=== PATIENT | female | born 1965 | race African-American/Black ===

== ENCOUNTER 2017-04-04 08:29 | Observation (INO) | payer BC ==
--- NOTE | 2017-04-04 09:13 | RAD ---
CHEST 1 VIEW: HISTORY: Chest pain. COMPARISON: None. FINDINGS: Lungs are clear. No pneumothorax or effusion. Cardiac silhouette and mediastinal contours are withi n normal limits. IMPRESSION: No acute intrathoracic abnormality. POS: [facility]
[2017-04-04 09:14] LABS: #Basophils 0.1 thou/uL (0.0-0.2); #Eosinphils 0.2 thou/uL (0.0-0.7); #Lymphocytes 2.3 thou/uL (1.20-3.40); #Monocytes 0.3 thou/uL (0.11-0.59); #Neutrophils 4.4 thou/uL (1.40-6.50); %Basophils 1.3 % (0.0-1.0); %Lymphocytes 31.3 % (21.0-51.0); %Monocytes 4.2 % (0.0-10.0); %Neutrophils 60.2 % (42.0-75.0); Hemoglobin 15.3 g/dL (12.0-16.0); Mean Corpuscular Hemoglobin 32.4 pg (27.0-31.0); Mean Corpuscular Volume 98.3 fl (81.0-99.0); Mean Platelet Volume 8.3 fL (7.4-10.4); Platelet Count 299 thou/uL (130-400); RBC Distribution Width 11.6 % (11.5-14.5); Red Blood Cell (RBC) Count 4.73 mill/uL (4.20-5.40); White Blood Cell (WBC) Count 7.3 thou/uL (4.8-10.8)
[2017-04-04] MEDS ORDERED: Aspirin 325 MG TAB ONE (09:19)
[2017-04-04 09:41] LABS: CKMB 1.1 ng/mL (0-6.6); Troponin I 0.014 ng/mL (< 0.028)
[2017-04-04 09:46] LABS: ALT (SGPT) 18 U/L (8-55); AST (SGOT) 22 U/L (5-34); Albumin 4.6 g/dL (3.5-5.0); Anion Gap 13 mmol/L (10-20); BUN (Urea Nitrogen) 10 mg/dL (9.8-20.1); Bilirubin, Total 0.3 mg/dL (0.2-1.2); CK (CPK) 73 U/L (29-168); Calc. Creatinine Clearance 0 mL/min (70-130); Calcium 9.8 mg/dL (7.8-10.44); Carbon Dioxide 26 mmol/L (22-29); Chloride 101 mmol/L (98-107); Estimated GFR-MDRD Greater than 90; Globulin 3.8 g/dL (2.4-3.5); Glucose 208 mg/dL (70-105); Lipase 152 U/L (8-78); Potassium 4.7 mmol/L (3.5-5.1); Protein, Total 8.4 g/dL (6.0-8.3); Sodium 135 mmol/L (136-145)
[2017-04-04 10:19] LABS: Alkaline Phosphatase 129 U/L (40-150)
[2017-04-04 11:54] VITALS: BMI 27.1
[2017-04-04 12:43] LABS: Troponin I Less than 0.010 ng/mL (< 0.028)
[2017-04-04 15:38] LABS: Troponin I Less than 0.010 ng/mL (< 0.028)
[2017-04-04] MEDS ORDERED: Dextrose 50% Abboject 50 ML SYRINGE IVP PRN (18:29)
[2017-04-04] MEDS ORDERED: Insulin Regular 300 UNITS/3 ML VIAL SC PRN (18:29)
[2017-04-04] MEDS ORDERED: Dextrose 5% in Water 1,000 ML IV PRN (18:29)
[2017-04-04] MEDS ORDERED: Insulin Detemir 100 UNITS/ML 10 UNITS in Pre-Filled Syringe 1 EACH SC SCH (21:00)
[2017-04-05 06:09] LABS: Hemoglobin A1c 8.9 % (4.0-6.0)
[2017-04-05 06:20] LABS: Cardiac Risk 4.5 (Less than 4.5)
--- NOTE | 2017-04-05 06:32 | HP ---
DATE OF ADMISSION: 04/04/2017 REASON FOR ADMISSION: Chest pain. HISTORY OF PRESENT ILLNESS: Ms. Cruz is a 51-year-old -[place] female with past medical history of diabetes, hypertension, hyperlipidemia, who came with chest pain in the retrosternal area, started 3 days ago. The patient says pain is a pressure-like, nonradiating, associated with shortness of breath and dizziness, but no diaphoresis. No nausea or vomiting. The patient says the chest pain is on and off, stays for a few minutes and goes away and comes back, but chest pain is not resolving. The patient decided to come to the hospital because of this chest pain. In the ER, the patient was evaluated, found to have normal cardiac enzymes and EKG. In view of risk factors, the patient is being admitted to rule out myocardial infarction. PAST MEDICAL HISTORY: 1. Diabetes mellitus. 2. Hypertension. 3. Hyperlipidemia. 4. Tobacco abuse. PAST SURGICAL HISTORY: Nothing significant. CURRENT MEDICATIONS: The patient is on lisinopril/hydrochlorothiazide 20/25 daily, glyburide with metformin 5/500, 2 b.i.d., also takes Lantus insulin 10 units daily. ALLERGIES: No known drug allergies. FAMILY HISTORY: Nothing of interest. SOCIAL HISTORY: The patient lives with family. No history of alcohol. Smokes 1 pack a day. REVIEW OF SYSTEMS: Cardiovascular: Has chest pain and shortness of breath. Respiratory: No fever or cough. Gastrointestinal: No nausea or vomiting. No abdominal pain. Genitourinary: No dysuria or hematuria. Central Nervous System: No headache, no dizziness. PHYSICAL EXAMINATION: GENERAL: The patient is alert, awake, and oriented x3. VITAL SIGNS: Temperature 98, pulse 89, respirations 20, blood pressure 170/104 initially, came down to 130/77. HEENT: Head is normocephalic, atraumatic. Pupils are equal and reactive. Nasopharynx is pink, moist. NECK: Supple. No JVD. LUNGS: Bilateral air entry present, no rales, no rhonchi. CARDIAC: S1, S2 regular. ABDOMEN: Soft, no distention, no tenderness. Normal bowel sounds present. RECTAL: Deferred. CENTRAL NERVOUS SYSTEM: No focal deficits. LABORATORY AND X-RAY FINDINGS: CBC shows WBC 7.3, hemoglobin 15, hematocrit 46 , platelets 299. Metabolic panel: Sodium 135, potassium 4.7, chloride 101, CO2 of 26, urea nitrogen 10, creatinine 0.7, glucose 208. CK-MB 1.1, troponin I 0.014. EKG shows normal sinus with PVCs, no acute ST-T wave changes seen. Chest x-ray, no acute intrathoracic abnormality. ASSESSMENT: 1. Chest pain, rule out myocardial infarction. 2. Insulin-dependent diabetes mellitus, uncontrolled. 3. Hypertension. 4. Hyperlipidemia. 5. Tobacco abuse. PLAN: 1. Vital signs q.4 hours. 2. Activity: As tolerated. 3. Allergies: No known drug allergies. 4. Hep-lock. 5. Diet: ADA and cardiac. 6. Troponin I q.8 hours x2. 7. Cardiolite stress test in the morning. 8. Continue home medication. 9. Accu-Chek a.c. and at bedtime. 10. Sliding scale mild with regular insulin. 11. Hold metformin. MTDD
[2017-04-05] MEDS ORDERED: Lisinopril/Hydrochlorothiazide 20/25 mg Tablet PO SCH (09:00)
[2017-04-05] MEDS ORDERED: Aspirin 325 MG TAB PO SCH (09:00)
--- NOTE | 2017-04-05 15:36 | NM ---
RADIONUCLIDE STRESS REST MYOCARDIAL PERFUSION SCAN WITH CT ATTENUATION CORRECTION AND SPECT IMAGING: HISTORY: Chest pain. FINDINGS: Adenosine protocol was used. There is heterogeneous uptake of radiotracer throughout the left ventri cular myocardium on the stress and rest images. No focal perfusion defect or reversibility are appar ent. QGS analysis of gated SPECT images shows no focal wall motion abnormalities. Left ventricular ejecti on fraction is calculated at 47%. IMPRESSION: 1. Normal myocardial perfusion scan showing no reliable evidence of ischemia. 2. Borderline ejection fraction of 47% without focal wall motion abnormality. POS: [facility]
[2017-04-05 16:27] VITALS: BP 112/84; TEMP 98.4
[2017-04-05] MEDS ORDERED: ADENOSINE 60 MG/20 ML VIAL ONE (16:29)
--- NOTE | 2017-04-08 12:00 | EKG ---
Test Reason : CHEST PAIN Blood Pressure : / mmHG Vent. Rate : 088 BPM Atrial Rate : 088 BPM P-R Int : 136 ms QRS Dur : 070 ms QT Int : 392 ms P-R-T Axes : 044 018 060 degrees QTc Int : 474 ms Sinus rhythm with frequent Premature ventricular complexes Possible Left atrial enlargement Borderline ECG Confirmed by KEON PELAYO, RADU ([id number]), editor at large KHANG BRUCE ([id number]) on 04/08/2017 11:59:53 AM Referred By: Confirmed By:RADU HERBERT MD
== END 2017-04-05 17:00 | disposition home or self-care (01) ==
LOC: ERS 08:29 → 2SW 09:57
PROVIDERS: ADMIT Internal Medicine; ATTEND Internal Medicine
DX: R07.89 Other chest pain (principal); E11.9 Type 2 diabetes mellitus without complications; I10 Essential (primary) hypertension; E78.5 Hyperlipidemia, unspecified; F17.210 Nicotine dependence, cigarettes, uncomplicated; Z79.4 Long term (current) use of insulin; Z79.899 Other long term (current) drug therapy
CPT/HCPCS: 36415; 36416; 71045; 78452; 80053; 80061; 82550; 82553; 83036; 83690; 84484; 85025; 93005; 93017; 94760; 99406; A9500; G0378; J0153; J1815

== ENCOUNTER 2018-08-11 10:38 | Emergency (ER) | payer BC ==
--- NOTE | 2018-08-11 11:30 | RAD ---
EXAM: Chest PA and lateral: HISTORY: Cough COMPARISON: 04/04/2017 FINDINGS: Heart size:Within normal limits. Lungs:Clear of acute process. No confluent pneumonia, overt edema, pleural effusion, or other acute process. IMPRESSION: No significant acute intrathoracic disease.
== END 2018-08-11 12:04 | disposition home or self-care (01) ==
LOC: ERS 10:38
DX: J06.9 Acute upper respiratory infection, unspecified (principal); I10 Essential (primary) hypertension; E11.9 Type 2 diabetes mellitus without complications; F17.210 Nicotine dependence, cigarettes, uncomplicated; Z79.899 Other long term (current) drug therapy; Z79.82 Long term (current) use of aspirin
CPT/HCPCS: 71046

== ENCOUNTER 2019-07-08 11:26 | Inpatient (IN) | payer BC ==
[2019-07-08] MEDS ORDERED: Aspirin Chewable 81 MG TAB ONE (11:59)
[2019-07-08 12:07] LABS: #Basophils 0.1 thou/uL (0.0-0.2); #Eosinphils 0.3 thou/uL (0.0-0.7); #Lymphocytes 2.2 thou/uL (1.20-3.40); #Monocytes 0.3 thou/uL (0.11-0.59); #Neutrophils 3.6 thou/uL (1.40-6.50); %Basophils 1.1 % (0.0-1.0); %Eosinophils 4.4 % (0.0-10.0); %Lymphocytes 33.6 % (21.0-51.0); %Monocytes 5.2 % (0.0-10.0); %Neutrophils 55.7 % (42.0-75.0); Hemoglobin 13.4 g/dL (12.0-16.0); Mean Corpuscular HGB CONC 32.9 g/dL (32.0-36.0); Mean Corpuscular Hemoglobin 31.5 pg (27.0-31.0); Mean Corpuscular Volume 95.7 fL (78.0-98.0); Mean Platelet Volume 8.2 fL (7.4-10.4); Platelet Count 284 thou/uL (130-400); RBC Distribution Width 11.1 % (11.5-14.5); Red Blood Cell (RBC) Count 4.24 mill/uL (4.20-5.40); White Blood Cell (WBC) Count 6.6 thou/uL (4.8-10.8)
[2019-07-08 12:34] LABS: Albumin 4.7 g/dL (3.5-5.0)
[2019-07-08 12:35] LABS: Calcium 9.9 mg/dL (7.8-10.44); Chloride 98 mmol/L (98-107); Potassium 4.5 mmol/L (3.5-5.1); Sodium 136 mmol/L (136-145)
[2019-07-08 12:36] LABS: Glucose 228 mg/dL (70-105)
[2019-07-08 12:37] LABS: Globulin 2.8 g/dL (2.4-3.5); Protein, Total 7.5 g/dL (6.0-8.3)
[2019-07-08 12:38] LABS: Anion Gap 17 mmol/L (10-20); Bilirubin, Total 0.4 mg/dL (0.2-1.2); Carbon Dioxide 26 mmol/L (22-29)
[2019-07-08 12:39] LABS: Alkaline Phosphatase 107 U/L (40-110); Calc. Creatinine Clearance 0 mL/min (70-130); Estimated GFR-MDRD 67
[2019-07-08 12:40] LABS: BUN (Urea Nitrogen) 21 mg/dL (9.8-20.1)
[2019-07-08 12:41] LABS: AST (SGOT) 14 U/L (5-34)
[2019-07-08 12:42] LABS: ALT (SGPT) 16 U/L (8-55)
--- NOTE | 2019-07-08 12:47 | RAD ---
PORTABLE CHEST: Date: 07/08/2019 PROVIDED CLINICAL HISTORY: Shortness of breath. FINDINGS: Comparison with 04/04/2017. Cardiac and mediastinal silhouette is within normal limits. Lungs appear clear. No pleural fluid or p neumothorax apparent. IMPRESSION: No evidence for acute cardiopulmonary process. POS: [facility]
--- NOTE | 2019-07-08 15:05 | PDOC.FPRHP ---
- History of Present Illness Chief Complaint: Shortness of breath History of Present Illness: This is a 53yo F presenting today for SOB. Her symptoms started on Monday, went away Monday and when she woke up today was SOB again. She states her SOB is improved currently. She states that she went to the bathroom while in the ER and wasn't SOB. She also endorses chest pain on the left side of chest going to the shoulder on Monday. She took Aleve which improved her pain on the L. She states the pain was dull/achy. Pain was 6/10. She states nothing made the pain worse. The Aleve made the pain better and she was able to sleep right after that. She endorses sweats due to heat flashes. Patient states that she had a normal pharmacologic stress test about 2 years ago. ED Course: given ASA, normal CXR - Allergies/Adverse Reactions Allergies Allergy/AdvReac Type Severity Reaction Status Date / Time No Known Allergies Allergy Unverified 04/04/17 12:12 - Home Medications Medication Instructions Recorded Confirmed Type Glyburide/Metformin HCl 2 tablet PO BID-WM 04/04/17 04/04/17 History [glyBURIDE/metFORMIN] Insulin Glargine,Hum.Rec.Anlog 10 unit SQ QPM 04/04/17 04/04/17 History [Lantus] Lisinopril/Hydrochlorothiazide 1 tablet PO DAILY 04/04/17 04/04/17 History [Lisinopril-Hctz 20-25 mg Tab] - History PMHx: DMII, HTN, HLD PSHx: uterine ablation, trigger finger FHx: Mother (70) and Father (56) of CAD; brother with CAD Social: Hx of tobacco use - started age 15 -23, [age], [age]; hx of alcohol, cocaine and marijuana use 27yrs ago - Review of Systems General: reports: night sweats. denies: fever/chills, weight/appetite/sleep changes, fatigue Eyes: denies: vision changes ENT: denies: nasal congestion, rhinorrhea Respiratory: reports: shortness of breath. denies: cough, congestion, exercise intolerance Cardiovascular: reports: chest pain. denies: palpitation, edema, orthopnea Gastrointestinal: reports: nausea, vomiting. denies: diarrhea, constipation, abdominal pain, GI bleeding Genitourinary: denies: dysuria Skin: reports: rashes, itching Musculoskeletal: denies: pain, tenderness, stiffness, swelling, arthritis/ arthralgias Neurological: denies: weakness - Vital signs Pulse: 89, Resp: 16, Temp: 98.3 (Oral), Pain: 0, O2 sat: 100 on (Room Air), Time : 07/08/2019 11:32. Weight: 66kg - Physical Exam Constitutional: NAD, awake, alert and oriented, well developed HEENT: normocephalic and atraumatic, PERRLA, EOMI, no scleral icterus, grossly normal vision, grossly normal hearing, MMM Neck: supple, FROM, trachea midline, no LAD, no JVD Chest: no-tender to palpation, no lesions Heart: RRR, normal S1/S2, no murmurs/rubs/gallops, pulses present, no edema Lungs: CTAB, no respiratory distress, good air movement, no rales/rhonchi, no wheezing, no retractions Abdomen: soft, non-tender, bowel sounds present, no masses/distention Musculoskeletal: normal structure, normal tone, ROM grossly normal Neurological: no focal deficit, CN II-XII intact, normal sensation Skin: no rash/lesions, good turgor, capillary refill <2 seconds Heme/Lymphatic: no unusual bruising or bleeding Psychiatric: normal mood and affect, good judgment and insight, intact recent and remote memory FMR H&P: Results - Labs Result Diagrams: 07/08/19 11:59 07/08/19 11:59 Lab results: WBC 6.6 thou/uL (4.8-10.8) 07/08/19 11:59 Hgb 13.4 g/dL (12.0-16.0) 07/08/19 11:59 Hct 40.6 % (36.0-47.0) 07/08/19 11:59 MCV 95.7 fL (78.0-98.0) 07/08/19 11:59 Plt Count 284 thou/uL (130-400) 07/08/19 11:59 Neutrophils % 55.7 % (42.0-75.0) 07/08/19 11:59 Sodium 136 mmol/L (136-145) 07/08/19 11:59 Potassium 4.5 mmol/L (3.5-5.1) 07/08/19 11:59 Chloride 98 mmol/L (98-107) 07/08/19 11:59 Carbon Dioxide 26 mmol/L (22-29) 07/08/19 11:59 BUN 21 mg/dL (9.8-20.1) H 07/08/19 11:59 Creatinine 1.04 mg/dL (0.6-1.1) 07/08/19 11:59 Glucose 228 mg/dL (70-105) H 07/08/19 11:59 Calcium 9.9 mg/dL (7.8-10.44) 07/08/19 11:59 Total Bilirubin 0.4 mg/dL (0.2-1.2) 07/08/19 11:59 AST 14 U/L (5-34) 07/08/19 11:59 ALT 16 U/L (8-55) 07/08/19 11:59 Alkaline Phosphatase 107 U/L (40-110) 07/08/19 11:59 B-Natriuretic Peptide Less than 10.0 pg/mL (0-100) 07/08/19 11:59 Serum Total Protein 7.5 g/dL (6.0-8.3) 07/08/19 11:59 Albumin 4.7 g/dL (3.5-5.0) 07/08/19 11:59 - Radiology Interpretation Chest x-ray Status: report reviewed by me (normal) FMR H&P: A/P - Problem List (1) Shortness of breath Current Visit: Yes Status: Acute Code(s): R06.02 - SHORTNESS OF BREATH (2) DM (diabetes mellitus) Current Visit: Yes Status: Acute Code(s): E11.9 - TYPE 2 DIABETES MELLITUS WITHOUT COMPLICATIONS (3) HTN (hypertension) Current Visit: Yes Status: Acute Code(s): I10 - ESSENTIAL (PRIMARY) HYPERTENSION (4) HLD (hyperlipidemia) Current Visit: Yes Status: Acute Code(s): E78.5 - HYPERLIPIDEMIA, UNSPECIFIED (5) Chest pain Current Visit: No Status: Acute Code(s): R07.9 - CHEST PAIN, UNSPECIFIED - Plan Atypical Chest Pain -Heart score of 3 -Risk factors: family history of cardiac , diabetes, hypertension, and hyperlipidemia. -Normal cardiolite stress in 2018. -Plan for stress in the AM. Pending results, possible d/c tomorrow. -NPO at midnight. No beta blockers after midnight. DM II -Continue home medications -SSI and hypoglycemia protocol HTN -continue home medications HLD -Continue home medications. Dispo: admit to tele, obs DVT ppx: SCDs GI ppx: not indicated Code status: FULL Case discussed with Dr. Larkin FMR H&P: Upper Level - Plan Date/Time: 07/08/19 1502 I, Rosa Beckham MD, have evaluated this patient and agree with findings/plan as outlined by wedding planning internship resident. Pertinent changes/additions are listed here. This is a 53yo F presenting to the ER primarily due to SOB. She states she first felt SOB on Monday and this went away on Monday. She started to feel SOB again this morning which is what led her to come to the ER> She also endorses chest pain on Monday night that was left sided and radiates to her shoulder, was dull in character and rated a 6/10. She states the chest pain has resolved and not returned. She states nothing made her SOB worse or better. Alieve made her chest pain go away. She reports she is able to sleep flat and on her stomach at night without any issue. She was able to walk to the bathroom in the ER without getting SOB. She does report a significant family hx of cardiac disease. She has a significant smoking hx but quit 2 years ago. Patient states she had a previously normal stress test about 2 years ago. See interns note for full HPI and histories. PE: General: NAD, well developed HEENT: PEERL, EOMI, NC/AT, trachea midline, mild JVD Cardio: RRR, no murmurs, rubs or gallops Resp: CTAB, no wheezes, rales or rhonchi Abd: soft, non tender, non distended MSK: FROM, no tenderness in L extremity Neuro: non focal Psych: normal mood/affect, axox3 A&P: Atypical Chest Pain Symptoms of SOB and chest pain. HEART score of 3 - low risk. Risk factors include: DMII, HTN, HLD, fam hx - Trop neg x 1, trend - Stress test in AM, NPO at midnight - Admit to tele, obs DMII - ACHS, SS, continue home regimen HTN - aware, continue home meds HLD - aware, continue home meds - FLP in AM to risk stratify Dispo: admit to tele, obs DVT ppx: none, low risk GI ppx: not indicated Code status: FULL Case discussed with Dr. Larkin Addendum - Attending - Attending Attestation Date/Time: 07/08/191934 I personally evaluated the patient and discussed the management with Dr. Flores I agree with the History, Examination, Assessment and Plan documented above with any addition or exceptions noted below- 53 yo female with h/o DM, HTN, HLD who presents with SOB, intermittent. Patient reports episode of chest pain and SOB on Monday that resolved spontaneously. [place] well on Monday and this morning had another episode of SOB. Denies any fever/chills, diaphoresis, N/V/D , abdominal pain, diarrhea. Afebrile VSS. BP 142/86 P87 RR18 Exam repeated by me and agree with resident's findings. Labs: WBC=6.6, Ou=676, K=4.5, BUN/Cr= 21/1.04, Zyvh=058, trop I <0.010. EKG- NSR no ST changes. A/P: 1) Chest pain - Place in obs. Serial cardiac enzymes. Plan for stress test in the morning. 2) DM - continue home meds and monitor accuchecks. will check HgBA1c.
[2019-07-08] MEDS ORDERED: Dextrose 50% Abboject 50 ML SYRINGE SLOW IVP PRN (15:42)
[2019-07-08] MEDS ORDERED: Acetaminophen 325 MG TAB PO PRN (15:42)
[2019-07-08] MEDS ORDERED: Dextrose 5% in Water 1,000 ML IV PRN (15:42)
[2019-07-08] MEDS ORDERED: HumaLOG 300 UNITS/3 ML VIAL SC PRN (15:42)
[2019-07-08 18:32] LABS: Troponin I Less than 0.010 ng/mL (< 0.028)
[2019-07-08] MEDS ORDERED: Nitroglycerin 0.4 MG TAB (25 Tab Bottle) SL PRN (20:46)
[2019-07-08 21:10] VITALS: BMI 26.7
[2019-07-08 21:37] LABS: Troponin I Less than 0.010 ng/mL (< 0.028)
[2019-07-08 22:33] LABS: Amphetamine Not Detected (NotDetected); Barbiturates Screen Not Detected (NotDetected); Benzodiazepine Screen Not Detected (NotDetected); Cocaine Metabolite Screen Not Detected (NotDetected); Medtox Control Line Valid? VALID (VALID); Medtox Reader # READER 4; Methadone Not Detected (NotDetected); Methamphetamine Not Detected (NotDetected); Opiate Screen Not Detected (NotDetected); Oxycodone Screen Not Detected (NotDetected); Phencyclidine (PCP) Not Detected (NotDetected); THC/Cannabinoid Screen Not Detected (NotDetected); Tricyclic Screen Not Detected (NotDetected)
[2019-07-09 05:35] LABS: Hemoglobin A1c 8.7 % (4.0-6.0)
[2019-07-09 05:50] LABS: Cardiac Risk 3.8 (Less than 4.5)
--- NOTE | 2019-07-09 06:06 | PDOC.FM ---
- Objective MAR Reviewed: Yes Vital Signs & Weight: Vital Signs (12 hours) Temp Pulse Resp BP Pulse Ox 07/09/19 04:00 97.4 F L 81 16 119/69 100 07/09/19 00:00 98.3 F 84 16 118/67 97 07/08/19 20:34 98.3 F 90 20 120/70 98 Weight Weight 66.27 kg Result Diagrams: 07/08/19 11:59 07/08/19 11:59 Additional Labs: A1c 8.7 Phys Exam - Physical Examination Constitutional: NAD HEENT: moist MMs, sclera anicteric Neck: supple, full ROM Respiratory: no wheezing, no rales, no rhonchi, clear to auscultation bilateral Cardiovascular: RRR, no significant murmur, no rub Gastrointestinal: soft, non-tender, no distention Musculoskeletal: no edema, pulses present Neurological: non-focal, normal sensation, moves all 4 limbs Psychiatric: normal affect, A&O x 3 Skin: no rash, normal turgor Dx/Plan (1) Shortness of breath Code(s): R06.02 - SHORTNESS OF BREATH Status: Acute (2) DM (diabetes mellitus) Code(s): E11.9 - TYPE 2 DIABETES MELLITUS WITHOUT COMPLICATIONS Status: Acute (3) HTN (hypertension) Code(s): I10 - ESSENTIAL (PRIMARY) HYPERTENSION Status: Acute (4) HLD (hyperlipidemia) Code(s): E78.5 - HYPERLIPIDEMIA, UNSPECIFIED Status: Acute (5) Chest pain Code(s): R07.9 - CHEST PAIN, UNSPECIFIED Status: Acute - Plan Plan: Atypical Chest Pain -Heart score of 3 -Risk factors: family history of cardiac , diabetes, hypertension, and hyperlipidemia. -Normal cardiolite stress in 2018. -Plan for stress test this morning. D/c plan pending results. DM II -Continue home medications -SSI and hypoglycemia protocol -A1c 8.7. Will need outpatient follow up for tighter diabetes management. HTN -continue home medications HLD -Continue home medications. Dispo: admit to tele, obs DVT ppx: SCDs GI ppx: not indicated Code status: FULL Case discussed with Dr. Larkin
[2019-07-09] MEDS: HumaLOG 300 UNITS/3 ML VIAL SC PRN ×2 (06:24→16:17)
--- NOTE | 2019-07-09 06:45 | PDOC.FM ---
- Subjective Subjective: NAEO. Per tele, patient had 10 sec of PAT. Patient standing up at the bedside. No complaints or concerns. Denies any SOB, chest pain, NVD, abd pain, palpitations overnight. - Objective MAR Reviewed: Yes Vital Signs & Weight: Vital Signs (12 hours) Temp Pulse Resp BP Pulse Ox 07/09/19 04:00 97.4 F L 81 16 119/69 100 07/09/19 00:00 98.3 F 84 16 118/67 97 07/08/19 20:34 98.3 F 90 20 120/70 98 Weight Weight 66.27 kg Result Diagrams: 07/08/19 11:59 07/08/19 11:59 Phys Exam - Physical Examination Constitutional: NAD HEENT: moist MMs, sclera anicteric Neck: supple, full ROM Respiratory: clear to auscultation bilateral Cardiovascular: RRR, no significant murmur, no rub Gastrointestinal: soft, non-tender, no distention, positive bowel sounds Musculoskeletal: no edema Neurological: non-focal, moves all 4 limbs Psychiatric: normal affect, A&O x 3 Skin: no rash, normal turgor, cap refill <2 seconds Dx/Plan (1) DM (diabetes mellitus) Code(s): E11.9 - TYPE 2 DIABETES MELLITUS WITHOUT COMPLICATIONS Status: Acute (2) HLD (hyperlipidemia) Code(s): E78.5 - HYPERLIPIDEMIA, UNSPECIFIED Status: Acute (3) HTN (hypertension) Code(s): I10 - ESSENTIAL (PRIMARY) HYPERTENSION Status: Acute (4) Shortness of breath Code(s): R06.02 - SHORTNESS OF BREATH Status: Acute (5) Chest pain Code(s): R07.9 - CHEST PAIN, UNSPECIFIED Status: Acute - Plan Plan: Atypical Chest Pain Symptoms of SOB and chest pain. HEART score of 3 - low risk. Risk factors include: DMII, HTN, HLD, fam hx. Hx of normal stress test in 2018. Etiology likely MSK as it was relieved with alieve. - Trop neg x 2 - Stress test this AM - Risk stratified with A1c: 8.7, FLP: Total 105, TG 147, HDL 28, LDL 48. ASCVD risk 9.5% - recommend high intensity statin. Will increase atorvastatin to 40mg daily. Patient agreeable. DMII - ACHS, SS, continue home regimen HTN - aware, continue home meds HLD - aware, continue home meds - see above - will increase to high intensity statin. Dispo: DC if stress test normal DVT ppx: none, low risk GI ppx: not indicated Code status: FULL Case discussed with Dr. Larkin Addendum - Attending - Attending Attestation Date/Time: 07/09/19 2125 I personally evaluated the patient and discussed the management with Dr. Beckham I agree with the History, Examination, Assessment and Plan documented above with any addition or exceptions noted below- Patient denies any complaints. No further SOB or chest pain. Afebrile VSS. A/P: 1) Chest pain- troponins negative ; Stress showed no reversible ischemia but does have depressed ejection fraction =33%. Will obtain echo and plan for cardiology consult. 2) DM- Continue current meds. 3) HTN - stable; continue current meds.
[2019-07-09] MEDS ORDERED: GLYBURIDE PO SCH (08:00)
[2019-07-09] MEDS ORDERED: METFORMIN HCL PO SCH (08:00)
[2019-07-09] MEDS: Aspirin 81 mg Enteric Coated Tablet PO SCH (08:22)
[2019-07-09] MEDS: Lisinopril/Hydrochlorothiazide 20/25 mg Tablet PO SCH (08:23)
[2019-07-09] MEDS ORDERED: ADENOSINE 60 MG/20 ML VIAL ONE (09:16)
--- NOTE | 2019-07-09 13:05 | NM ---
Radionucleotide stress and rest myocardial perfusion scan with CT attenuation correction and SPECT im aging Left ventricular wall motion evaluation and ejection fraction HISTORY: Chest pain. FINDINGS: Adenosine protocol. There is heterogeneous uptake of radiotracer throughout the left ventri cular myocardium. No focal perfusion defect or reversibility evident. QGS analysis of gated SPECT images shows decrease in motion of the septum. Left ventricular ejection fraction calculated at 33%. IMPRESSION : No scintigraphic evidence of ischemia. Markedly depressed left ventricular ejection fraction. Relative hypokinesis of the septum.
[2019-07-09] MEDS: metFORMIN 500 MG TAB PO SCH ×2 (13:49→16:18)
[2019-07-09] MEDS: glyBURIDE 5 MG TAB PO SCH ×2 (13:50→16:18)
[2019-07-09] MEDS ORDERED: hydrOXYzine 25 MG TAB PO PRN (14:40)
[2019-07-09] MEDS ORDERED: Atorvastatin Calcium 40 MG TAB PO SCH (21:00)
[2019-07-10] MEDS: HumaLOG 300 UNITS/3 ML VIAL SC PRN ×2 (06:16→12:52)
--- NOTE | 2019-07-10 07:02 | PDOC.FM ---
- Subjective Subjective: NAEO. Patient resting comfortably in bed, getting echo. Patient less anxious today after talking with her family. She denies any SOB, chest pain, palpitations, NVD, LE edema. - Objective MAR Reviewed: Yes Vital Signs & Weight: Vital Signs (12 hours) Temp Pulse Resp BP Pulse Ox 07/10/19 03:02 97.8 F 82 18 111/55 L 96 07/09/19 19:15 98.4 F 92 18 138/71 98 Weight Weight 66.224 kg I&O: 07/08/19 07/09/19 07/10/19 06:59 06:59 06:59 Intake Total 1140 Balance 1140 Result Diagrams: 07/08/19 11:59 07/08/19 11:59 Phys Exam - Physical Examination Constitutional: NAD HEENT: moist MMs, sclera anicteric Neck: supple, full ROM Respiratory: clear to auscultation bilateral Cardiovascular: RRR Gastrointestinal: soft Neurological: non-focal, moves all 4 limbs Psychiatric: normal affect, A&O x 3 Skin: no rash, normal turgor, cap refill <2 seconds Dx/Plan (1) DM (diabetes mellitus) Code(s): E11.9 - TYPE 2 DIABETES MELLITUS WITHOUT COMPLICATIONS Status: Acute (2) HLD (hyperlipidemia) Code(s): E78.5 - HYPERLIPIDEMIA, UNSPECIFIED Status: Acute (3) HTN (hypertension) Code(s): I10 - ESSENTIAL (PRIMARY) HYPERTENSION Status: Acute (4) Shortness of breath Code(s): R06.02 - SHORTNESS OF BREATH Status: Acute (5) Chest pain Code(s): R07.9 - CHEST PAIN, UNSPECIFIED Status: Acute - Plan Plan: Atypical Chest Pain Symptoms of SOB and chest pain. HEART score of 3 - low risk. Risk factors include: DMII, HTN, HLD, fam hx. Hx of normal stress test in 2018. Etiology possibly due to low EF. - Trop neg x 2 - Stress test showed no ischemia, but did reveal low EF of 33% estimated. Echo pending. - Cardiology consulted, appreciate recommendations. - Risk stratified with A1c: 8.7, FLP: Total 105, TG 147, HDL 28, LDL 48. ASCVD risk 9.5% - recommend high intensity statin. Will increase atorvastatin to 40mg daily. Patient agreeable. Possible new dx CHF, no exacerbation - Stress test revealed EF 33%, systolic dysfxn. Pending TTE. Cardiology consulted. DMII - ACHS, SS, continue home regimen. A1c 8.7. Could consider adding SGLT2. Will need to f/u outpatient for better control. HTN - aware, continue home meds HLD - aware, continue home meds - see above - will increase to high intensity statin. Dispo: pending echo results DVT ppx: none, low risk GI ppx: not indicated Code status: FULL Case discussed with Dr. Larkin Addendum - Attending - Attending Attestation Date/Time: 07/10/19 9816 I personally evaluated the patient and discussed the management with Dr. Beckham I agree with the History, Examination, Assessment and Plan documented above with any addition or exceptions noted below - Patient without complaints. No further episodes of chest pain or SOB. Afebrile VSS. A/P: 1) Chest pain- resolved. 2) Abnormal stress- echo shows normal EF. Will d/c home today 3) DM - continue meds.
[2019-07-10] MEDS: glyBURIDE 5 MG TAB PO SCH (09:21)
[2019-07-10] MEDS: Aspirin 81 mg Enteric Coated Tablet PO SCH (09:22)
[2019-07-10] MEDS: metFORMIN 500 MG TAB PO SCH (09:22)
[2019-07-10] MEDS: Lisinopril/Hydrochlorothiazide 20/25 mg Tablet PO SCH (09:23)
[2019-07-10 13:06] VITALS: BP 157/72; TEMP 98
--- NOTE | 2019-07-10 17:10 | CON ---
DATE OF CONSULTATION: HISTORY OF PRESENT ILLNESS: The patient is a 53-year-old woman who presents for evaluation of chest discomfort and dyspnea. The patient was seen with chest pain in March of 2017. At that time, she underwent a Cardiolite stress test, where she was found to have an ejection fraction 47% with no evidence of ischemia. The patient was placed on medical therapy. She was in her usual state of health when she developed left-sided chest discomfort. It radiated down to her left arm.This discomfort lasted for approximately 20 minutes. The patient states she took Aleve and the pain resolved. The next morning, she felt increasing dyspnea. She reports dyspnea with minimal exertion. She denied having any PND or orthopnea. The patient came for further evaluation. The patient at this time has had no further chest discomfort and is not short of breath. The patient has multiple cardiac risk factors including diabetes mellitus, hypertension, dyslipidemia, and a family history of coronary artery disease. PAST MEDICAL HISTORY: 1. Diabetes mellitus. 2. Hypertension. 3. Dyslipidemia. PAST SURGICAL HISTORY: Uterine ablation. SOCIAL HISTORY: Former smoker. ALLERGIES: NO KNOWN DRUG ALLERGIES. FAMILY HISTORY: Strong family history of coronary artery disease. MEDICATIONS: 1. Lisinopril HCTZ 20/25 tablet daily. 2. Aspirin 81 daily. 3. Lipitor 40 at bedtime. REVIEW OF SYSTEMS: Ten-point system otherwise unremarkable. PHYSICAL EXAMINATION: GENERAL: Well-developed woman, in no acute distress. VITAL SIGNS: Blood pressure 111/55. NECK: No jugular venous distention. LUNGS: Clear to auscultation. HEART: Regular rate and rhythm. Normal S1 and S2. No murmurs. ABDOMEN: Nondistended. EXTREMITIES: Show no edema. VASCULAR: Radial pulses 2+. LABORATORY DATA: White blood cell count 6.6, hemoglobin 13.4, hematocrit 40.6, platelet 284. Sodium is 136, potassium 4.5, chloride 98, bicarbonate 26, BUN 21 , creatinine 1.0, glucose 228. Troponin less than 0.01. BNP was less than 10. EKG normal sinus rhythm with premature ventricular contraction, otherwise unremarkable EKG. Cardiolite stress test revealed a moderately decreased left ventricular ejection fraction 33% with no evidence of ischemia. Echocardiogram, normal left ventricular ejection fraction 50% to 55% with diastolic dysfunction. IMPRESSION AND PLAN: 1. Chest pain, possibly due to ischemic heart disease. 2. Hypertension. 3. Diabetes mellitus. 4. History of tobacco abuse. 5. Strong family history of coronary artery disease. This patient presents with chest pain. Her Cardiolite stress test revealed no evidence of significant ischemia. The patient is on appropriate cardiac medication. The patient was found to have a low ejection fraction on the stress test; however, an echocardiogram revealed normal left ventricular systolic function with no evidence of cardiomyopathy. From a cardiac standpoint, I presented the option of undergoing further evaluation including cardiac catheterization. The patient prefers to be placed on medical therapy. We will start the patient on a low dose of Cardizem. The patient should have sublingual nitroglycerin. If she continues to be symptomatic, then she will need to undergo further evaluation. We will follow this patient with you through her hospitalization. Job ID: [id number] MTDD
--- NOTE | 2019-07-11 08:36 | PQF ---
ABRAHAM QUEZADA ANNA MD [id number] [id number] CLINICAL DOCUMENTATION CLARIFICATION FORM: POST DISCHARGE Addendum to original discharge summary date: ____ Late entry note date: __ DATE: 07/11/2019 ATTN: Navya Brown Please exercise your independent, professional judgment in responding to the clarification form. Clinical indicators are provided on the bottom of this form for your review In your clinical opinion based on clinical findings below, can you please identify the etiology of Chest pain if due to: Please check appropriate box(s): [ ] CHF Type: [ ] Systolic [ ] Diastolic [ ] Mixed Acuity: [ ] Acute [ ] Chronic [ ] Acute on Chronic [ x ] Musculoskeletal pain [ ] Ischemic heart disease [ ] Other diagnosis [ ] Unable to determine For continuity of documentation, please document condition throughout progress notes and discharge summary. Thank You. CLINICAL INDICATORS - SIGNS / SYMPTOMS /LABS Laboratory 07/07 BNP 10.0, Troponin less than 0.010 Vital signs 07/07 -BP 142/86, Pulse 89, Resp 16, Temp 98.3 H&P p1 07/07 Dr Flores She woke up today was SOB again. She also endorses chest pain on the left side of chest going to shoulder H&P p1 07/07 Dr Flores Pain was 08/13 Hospitalist p2 07/08 Atypical chest pain etiology likely MSK as it was relieved with alieve Hospitalist p2 07/08 Stress showed no reversible ischemia but does have depressed ejection fraction = 33% Hospitalist p2 07/09 Atypical chest pain etiology possible due to low EF Hospitalist p2 07/09 possible new dx of CHF, no exacerbation. Stress test revealed EF 33%, systolic dysfunction Consult p2 07/09 Chest pain possibly due to ischemic heart disease EKG 07/07 EKG findings: occasional PVCs RISK FACTORS H&P p1 07/07 DM II H&P p1 07/07 HTN H&P p1 07/07 HLD H&P p1 07/07 Former Smoker Consult p2 07/09 - Family hx of Coronary artery disease TREATMENTS: MAY 08 Aspirin Chewable 81 mg oral MAY 07 Lipitor 40mg oral MAY 08 Prinizide 1 tab oral MAY 08 Cardizem 120 mg oral Cardiology consult 07/09 Cristian Lewis Chest X-ray 07/07 Stress test Nuclear medicine 07/08 TTE 07/09 EKG Collected 07/07 (This form is maintained as a part of the permanent medical record) 2014 [employer]. All Rights Reserved [email or web address]
--- NOTE | 2019-07-11 14:19 | DIS ---
DATE OF ADMISSION: 07/08/2019 DATE OF DISCHARGE: 07/10/2019 RESIDENT: Rosa Beckham MD ADMITTING ATTENDING: Navya Larkin MD. DISCHARGE ATTENDING: Navya Larkin MD. CONSULTS: Cardiology, Dr. Mata. PROCEDURES: 1. On 07/09/2019, nuclear stress test showing no reversible ischemia, ejection fraction 33%, and relative hypokinesis of the septum. 2. Echocardiogram on 07/10/2019 showing ejection fraction 50% to 55%, normal sized left atrium, diastolic dysfunction. DISCHARGE MEDICATIONS: 1. Lipitor 40 mg oral at bedtime. 2. Diltiazem 120 mg oral daily. 3. Atarax 25 mg oral every 4 hours as needed. 4. Nitrostat 0.4 mg sublingual every 5 minutes as needed. 5. Lisinopril/hydrochlorothiazide 1 tablet oral daily. 6. Glyburide/metformin 2 tablets oral twice daily with meals. 7. Lantus 15 to 25 units subcutaneous every evening. 8. Aspirin 81 mg oral daily. Discontinued medications: 1. Lipitor 20 mg at bedtime. PRIMARY DIAGNOSIS: 1. Atypical chest pain. SECONDARY DIAGNOSES: 1. Hypertension, type 2 diabetes. 2. Tobacco abuse. HISTORY OF PRESENT ILLNESS/HOSPITAL COURSE: This is a 53-year-old female, who presented to the ER for shortness of breath and chest pain that has been occurring intermittently over the last 3 days. The patient reported that the chest pain was left-sided and radiated to the shoulder, but was improved with Aleve. She said the pain was dull and achy and a 6/10 pain. The patient states that she has never had this type of feeling before. She reported normal stress test that was done about 2 years ago. The patient was given aspirin and had a normal chest x- ray in the ER. The patient's troponins were negative. Vital signs stable. The patient was admitted for further workup of her chest pain. She has a strong family history of cardiac disease. She had a HEART score of 3. She was admitted and monitored on telemetry. She had a Cardiolite stress test on day 2, which showed an ejection fraction of 33%, but no reversible ischemia. Cardiology consulted. An echo then showed normal EF. Cardiology recommended starting on low dose Cardizem and stated that the stress EF was likely incorrect. The patient was also offered the option of undergoing cardiac catheterization in case her pain was due to ischemic disease, but the patient declined at this time as she was no longer having symptoms. If she does continue to be symptomatic, then she would consider undergoing further evaluation with a cardiac catheterization. The patient will also need to follow up with her PCP to monitor her diabetes. Her A1c was found to be 8.7 during her stay. The patient could increase her insulin or consider adding an SGLT2. DISPOSITION: Stable. DISCHARGE INSTRUCTIONS: 1. Location: Home. 2. Activity: Ad maura. 3. Diet: Heart healthy and consistent carbohydrate. 4. Followup: Follow up with PCP within 7 days. Of note, the patient was seeing Dr. Patel but he moved. She was given a [employer] [facility] card to follow up with us within one week. Job ID: [id number] MTDD
== END 2019-07-10 14:59 | disposition home or self-care (01) | DRG 313 ==
LOC: ERS 11:26 → 2SE 18:00 → OBSVTOIN 18:00 → 2NO 07-09 17:09
PROVIDERS: ADMIT Family Medicine; ATTEND Family Medicine
PROC: 3E0234Z Introduction of Serum, Toxoid and Vaccine into Muscle, Percutaneous Approach (ICD-10-PCS; principal; 2019-07-09)
DX: R07.89 Other chest pain (principal); I25.9 Chronic ischemic heart disease, unspecified; E11.9 Type 2 diabetes mellitus without complications; E78.5 Hyperlipidemia, unspecified; I10 Essential (primary) hypertension; R94.39 Abnormal result of other cardiovascular function study; Z82.49 Family history of ischemic heart disease and other diseases of the circulatory system; Z87.891 Personal history of nicotine dependence; Z79.899 Other long term (current) drug therapy; Z79.82 Long term (current) use of aspirin; Z79.4 Long term (current) use of insulin; Z23 Encounter for immunization
CPT/HCPCS: 36415; 36416; 71045; 78452; 80053; 80061; 80306; 83036; 83880; 84484; 85025; 85379; 90471; 90732; 93005; 93017; 93306; A9500; G0009; J0153

== ENCOUNTER 2020-02-26 06:44 | Outpatient (CLI) | payer OTHER ==
[2020-02-26 18:33] LABS: SARS-CoV-2 MS2 Positive; SARS-CoV-2 N Gene Negative; SARS-CoV-2 S Gene Negative; SARS-CoV-2 by NAA Not Detected (NotDetected); SARS-CoV-2 orf1ab Negative
== END 2020-02-26 06:45 | disposition home or self-care (01) ==
LOC: LABBT 06:44
PROVIDERS: ATTEND Ophthalmology Retina Specialist
DX: Z01.812 Encounter for preprocedural laboratory examination (principal); H43.12 Vitreous hemorrhage, left eye; Z20.828 Contact with and (suspected) exposure to other viral communicable diseases
CPT/HCPCS: 87635; U0003

== ENCOUNTER 2020-05-05 06:45 | Day surgery (SDC) | payer OTHER ==
[~2020-05-05 06:45] MED LIST: EPINEPHrine 0.3 MG in Ophthalmic Irrigation Solution 500 ML IRR SCH; Fentanyl 100 MCG/2 ML VIAL ONE; Midazolam HCl 2 mg/2 ml Vial ONE
[2020-05-05] MEDS ORDERED: Phenylephrine 2.5% Ophth Soln 5 ML BOT ONE (07:09)
[2020-05-05] MEDS ORDERED: Cyclopentolate 1% Opth Drop 2 ML BOT ONE (07:09)
[2020-05-05] MEDS ORDERED: PROPOFOL 20 ML ONE (07:10)
[2020-05-05] MEDS ORDERED: Fentanyl 100 MCG/2 ML VIAL ONE (07:10)
--- NOTE | 2020-05-05 09:06 | OP ---
DATE OF PROCEDURE: 05/05/2020 PRINCIPAL PREOPERATIVE DIAGNOSES: 1. Vitreous hemorrhage, left eye. 2. Proliferative diabetic retinopathy, left eye. POSTOPERATIVE DIAGNOSES: 1. Vitreous hemorrhage, left eye. 2. Proliferative diabetic retinopathy, left eye. 3. Tractional retinal detachment, macula involving, left eye. PROCEDURES PERFORMED: 1. 25-gauge pars plana vitrectomy, left eye. 2. Tractional retinal detachment repair, left eye. 3. Endolaser panretinal photocoagulation, left eye. ESTIMATED BLOOD LOSS: None. SPECIMENS REMOVED: None. COMPLICATIONS: None. ANESTHESIA: MAC with sub-Tenon's block. DESCRIPTION OF PROCEDURE: The patient was identified in the preoperative holding area, where the correct eye being the left eye was marked for surgery. The patient was taken to the operating room, where MAC anesthesia was induced. The left eye was prepped and draped in the usual sterile ophthalmic fashion for surgery. A wire-clip lid speculum was placed. An inferonasal conjunctival peritomy was fashioned with Evelyn scissors for administration of sub-Tenon's block. The block consisted of 1:1 ratio of 4% lidocaine and 0.75% Marcaine. Total of 5 mL was administered. A standard 25-gauge pars plana vitrectomy platform was fashioned with trocars placed approximately 3.5 mm from the limbus. The infusion was noted to be within the vitreous cavity prior to being turned on to an infusion pressure of 30 mmHg. The light pipe and microvitrector were introduced in the eye under visualization of the BIOM viewing system. A significant vitreous hemorrhage was noted obscuring adequate view of the fundus. A careful core vitrectomy was performed, which allowed for progressive improvement of the view posteriorly. Subsequently, a peripheral shave vitrectomy was performed relieving all traction from the vitreous on the retina. A macula involving tractional detachment was noted overlying the optic nerve into the inferotemporal arcade and a peripheral inferotemporal arcade with connecting fibrotic band between the two areas. This area was gently delaminated and segmented with use of the microvitrector. Following delamination and segmentation, relaxation of the retina was noted. No defects were noted within the retina. The Endolaser was used by panretinal photocoagulation posterior to the preexisting laser. Following this, the cannulas were sequentially removed and all sclerotomies were noted to be watertight. Subconjunctival Ancef and Kenalog were injected. The wire-clip lid speculum was removed followed by application of TobraDex ophthalmic ointment and a light patch and shield. The patient tolerated the procedure well, was taken to the outpatient recovery area in good condition. Job ID: [id number]
[2020-05-05] MEDS ORDERED: Maxitrol 0.1% Opth Oint 3.5 GM TUBE ONE (10:05)
[2020-05-05] MEDS ORDERED: Triamcinolone 40 MG/ML VIAL ONE (10:05)
[2020-05-05] MEDS ORDERED: Lidocaine 1% PF 5 ML VIAL ONE (10:05)
[2020-05-05] MEDS ORDERED: CEFAZOLIN 1 GM VIAL ONE (10:05)
[2020-05-05] MEDS ORDERED: Bupivacaine PF 0.75% SDV 10 ML ONE (10:05)
[2020-05-05] MEDS ORDERED: Lidocaine 4% PF 5 ML AMP ONE (10:05)
== END 2020-05-05 09:05 | disposition home or self-care (01) ==
LOC: SDC 06:45
PROVIDERS: ATTEND Ophthalmology Retina Specialist
PROC: 08T53ZZ Resection of Left Vitreous, Percutaneous Approach (ICD-10-PCS; principal; 2020-05-05)
PROC: 085F3ZZ Destruction of Left Retina, Percutaneous Approach (ICD-10-PCS; principal; 2020-05-05)
DX: E11.3522 Type 2 diabetes mellitus with proliferative diabetic retinopathy with traction retinal detachment involving the macula, left eye (principal); H43.12 Vitreous hemorrhage, left eye
CPT/HCPCS: J0171; J0690; J2250; J2704; J3010; J3301; J3490

== ENCOUNTER 2021-11-01 09:19 | Outpatient (CLI) | payer BC | END 2021-11-01 09:20 | disposition home or self-care (01) | LOC: RAD-FRANK 09:19 | PROVIDERS: ATTEND Nurse Practitioner Family | DX: M25.571 Pain in right ankle and joints of right foot (principal) ==

== ENCOUNTER 2022-01-24 13:35 | Outpatient (CLI) | payer BC | END 2022-01-24 13:36 | disposition home or self-care (01) | LOC: ULT 13:35 | PROVIDERS: ATTEND Nurse Practitioner Family | DX: R22.2 Localized swelling, mass and lump, trunk (principal) | CPT/HCPCS: 76999 ==